=== PATIENT | male | born 1965 | race Asian ===

== ENCOUNTER 2018-07-28 11:17 | Day surgery (SDC) | payer OTHER ==
[~2018-07-28] VITALS: Ht 170.2 cm; Wt 75.6 kg
[2018-07-28] MEDS ORDERED: COLCHICINE (11:54)
[2018-07-28] MEDS ORDERED: LISINOPRIL (11:54)
[2018-07-28] MEDS ORDERED: ALLOPURINOL (11:54)
[2018-07-28 11:59] VITALS: Ht 170.2 cm; Wt 75.6 kg
[2018-07-28 13:26] VITALS: BP 111/69; PULSE 63; RESP 18
[2018-07-28] MEDS ORDERED: MIDAZOLAM 1 MG/ML 2 ML INJ ONE ×2 (13:55)
[2018-07-28] MEDS ORDERED: FENTAnyl 50 MCG/ML VIAL ONE (13:55)
[2018-07-28 14:15] VITALS: BP 93/54; PULSE 62; RESP 18
== END 2018-07-28 15:57 | disposition home or self-care (01) ==
LOC: GIL 11:17
PROVIDERS: ATTEND Internal Medicine Gastroenterology
DX: Z12.11 Encounter for screening for malignant neoplasm of colon (principal); K64.8 Other hemorrhoids
CPT/HCPCS: 45378; J2250; J3010